=== PATIENT | male | born 1960 | race African-American/Black ===

== ENCOUNTER 2018-11-01 17:10 | Emergency (ER) | payer MEDICAID ==
[~2018-11-01] VITALS: Ht 172.7 cm; Wt 72.6 kg
[~2018-11-01 17:10] MED LIST: BACTRIM DS TAB1 EAC1 ORAL; CEPHALEXIN500 MG PO; IBUPROFEN600 MG ORAL; KEFLEX500 MG ORAL; NKM; NORCO 5-325 TA1 EACH ORAL; NORCO 5-325 TA1 EACH PO; TRAMADOL HCL50 MG ORAL
[2018-11-01 18:10] VITALS: BP 118/74
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
[2018-11-01] MEDS ORDERED: IBUPROFEN600 MG ORAL (18:17)
[2018-11-01 18:23] VITALS: BP 145/75
--- NOTE | 2018-11-01 18:24 | NUR ---
ED Nurse Note: Pt cleared by health care Provider for discharge. DC instructions/prescription was given and explained to pt and verbalized understanding of teachings. All medical deviecs such as ID band removed. Pt is AAO x4, ambulatory and left with all personal belongings.
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
== END 2018-11-01 18:25 | disposition home or self-care (01) ==
LOC: EMR 17:45
DX: S31.119D Laceration without foreign body of abdominal wall, unspecified quadrant without penetration into peritoneal cavity, subsequent encounter (principal); W45.8XXD Other foreign body or object entering through skin, subsequent encounter; Z48.02 Encounter for removal of sutures
CPT/HCPCS: 99282

== ENCOUNTER 2019-01-23 20:38 | Emergency (ER) | payer MEDICAID ==
[~2019-01-23] VITALS: Ht 172.7 cm; Wt 72.6 kg
--- NOTE | 2019-01-23 20:56 | NUR ---
ED Nurse Note: Received report. Pt from home, ambulatory, AAOx4, c/o left black eye from one week ago. Pt is worried because it looks more red and bruised than last week. Will assess and carry out ER MD's orders.
[2019-01-23 21:09] VITALS: BP 110/76
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
--- NOTE | 2019-01-23 21:30 | NUR ---
ED Nurse Note: Pt cleared by health care Provider for discharge. DC instructions was given and explained to pt and verbalized understanding of teachings. All medical deviecs such as ID band removed. Pt is AAO x4, ambulatory and left with all personal belongings.
== END 2019-01-23 21:30 | disposition home or self-care (01) ==
LOC: EMR 21:28
DX: S00.12XA Contusion of left eyelid and periocular area, initial encounter (principal); R60.0 Localized edema; Y04.2XXA Assault by strike against or bumped into by another person, initial encounter
CPT/HCPCS: 99282